=== PATIENT | female | born 1995 | race Hispanic/Latino ===

== ENCOUNTER 2017-01-21 07:04 | Outpatient (CLI) | payer BC ==
--- NOTE | 2017-01-21 07:47 | RAD ---
AP VIEW ABDOMEN: HISTORY: Ureteral stone. FINDINGS: AP view abdomen is obtained. There is a large amount of stool in the proximal colon. There has been placement of a left ureteral stent proximal portion over the left renal pelvis and di stal aspect over the bladder. IMPRESSION: Placement of a left ureteral stent. POS: [facility]
== END 2017-01-21 07:05 | disposition home or self-care (01) ==
LOC: RAD 07:04
PROVIDERS: ATTEND Urology
DX: N20.1 Calculus of ureter (principal); Z96.0 Presence of urogenital implants
CPT/HCPCS: 74000